=== PATIENT | male | born 1970 | race African-American/Black ===

== ENCOUNTER → 2019-01-28 | Day surgery (SDC) | payer BC ==
[~2019-01-28] MED LIST: CARTIA XT240 MG PO; CYMBALTA30 MG PO; FENTANYL CITRATE/PF 100MCG/2 ML INJ ONE; GABAPENTIN300 MG PO; IBUPROFEN400 MG PO; LOSARTAN-HCTZ1 EAC2 PO; METOCLOPRAMIDE HCL 10 MG/2ML VIAL ONE; MIDAZOLAM HCL 2 MG/2 ML VIAL ONE; MULTI-VITAMIN1 EACH PO; PROPOFOL IV EMULSION 10 MG/ML 20 ML VIAL ONE; TYLENOL WITH C1 EACH PO; ZANTAC150 MG PO
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
--- OUTSIDE RECORDS SUMMARY | 2019-01-28 11:18 | XMS REPORT ---
Author Author Stanislaw Edwards [facility] eClinicalWorks Address Unknown Phone Unavailable Care Team Providers Care Store Planner Name Role Phone Stanislaw Edwards Unavailable Allergies, Adverse Reactions, Alerts Substance Reaction Event Type N.K.D.A. Info Not Available Non Drug Allergy Problems Problem Type Condition Code Onset Dates Condition Status Assessment Spermatocele N43.40 Active Assessment Chest pain, unspecified type R07.9 Active Problem Erectile dysfunction, unspecified erectile dysfunction type N52.9 Active Problem Acute hemolytic anemia D59.9 Active Problem Smoker F17.200 Active Assessment Hypogonadism in male E29.1 Active Assessment Smoker F17.200 Active Problem Essential hypertension I10 Active Problem Hypogonadism in male E29.1 Active Medications Medication Code System Code Instructions Start Date End Date Status Dosage Ibuprofen ND 04018533228 400 MG Orally Three times a day Active 1 tablet with food or milk as needed Losartan Potassium-HCTZ ND 57674395771 100-25 MG Orally Once a day September 07, 2017 Active 1 tablet Cardizem LA ND 73839816231 240 MG Orally Once a day September 07, 2017 Active 1 tablet at the same time each day Multi For Him ND 44362317806 - Orally Active not defined Chantix Starting Month Leonides [facility] [address]-25 0.5 MG X 11 & 1 MG X 42 Orally as directed December 17, 2017 January 16, 2018 Active as directed Acetaminophen-Codeine #3 [facility] 12579080594 300-30 MG Oral Active (Schedule III Drug) TK 1 T PO EVERY 6 TO 8 HOURS PRF PAIN Gabapentin ND 95320037723 300 MG Orally Three times a day Active 1 capsule Methocarbamol ND 13364111549 500 mg Active 1.5 TABLETS THREE TIMES A DAY (TID) NEEDED (PRN) BY MOUTH 15 DAYS Chantix Continuing Month Leonides [facility] 68122858732 1 MG Orally Twice a day December 17, 2017 Mar 17, 2018 Active 1 tablet Vital Signs Date/Time: December 17, 2017 BMI 30.54 Index Weight 219 lbs Height 71 in Cardiac Monitoring Heart Rate 66 /min Blood Pressure Diastolic 76 mm Hg Blood Pressure Systolic 124 mm Hg Results No Known Results Summary Purpose eClinicalWorks Submission
--- OUTSIDE RECORDS SUMMARY | 2019-01-28 11:18 | XMS REPORT | Summary of Care ---
Author Author [facility] [employer] Organization [facility] Address Unknown Phone Unavailable Encounter JUANY Montalvo(ELISE) [id number] Date(s): 10/17/18 - 10/17/18 [facility] Discharge Disposition: Home or Self Care Attending Physician: Ibrahima Kohli MD Vital Signs No data available for [...]
--- OUTSIDE RECORDS SUMMARY | 2019-01-28 11:18 | XMS REPORT | Summary of Care ---
Author Author [facility] Organization [facility] Address Unknown Phone Unavailable Encounter HQ Encntr_alias(FIN) [id number] Date(s): 10/24/17 - 11/22/17 [facility] Discharge Disposition: Home or Self Care Attending Physician: Marcial West MD Vital Signs No data available for this section Problem List No data available for this section Allergies, Adverse Reactions, Alerts No data available for this section Medications No data available for this section Results No data available for this section Immunizations No data available for this section Procedures No data available for this section Social History No data available for this section Assessment and Plan No data available for this section
--- OUTSIDE RECORDS SUMMARY | 2019-01-28 11:18 | XMS REPORT ---
Author Author Stanislaw Edwards Organization [employer]ClinicalWorks Address Unknown Phone Unavailable Care Team Providers Care Global Engineering Manager Name Role Phone Stanislaw Edwards Unavailable Allergies, Adverse Reactions, Alerts Substance Reaction Event Type N.K.D.A. Info Not Available Non Drug Allergy Problems Problem Type Condition Code Onset Dates Condition Status Assessment Hyperglycemia R73.9 Active Assessment Essential hypertension I10 Active Assessment Pharyngitis, unspecified etiology J02.9 Active Assessment Status post hip surgery Z98.890 Active Assessment Encounter to discuss test results Z71.2 Active Problem LVH (left ventricular hypertrophy) I51.7 Active Problem Smoker F17.200 Active Problem Hyperglycemia R73.9 Active Problem Essential hypertension I10 Active Problem Hypogonadism in male E29.1 Active Problem Erectile dysfunction, unspecified erectile dysfunction type N52.9 Active Problem Acute hemolytic anemia D59.9 Active Medications Medication Code System Code Instructions Start Date End Date Status Dosage Ibuprofen ND 87398247784 400 MG Orally Three times a day Active 1 tablet with food or milk as needed Multi For Him ND 66407888591 - Orally Active not defined Zithromax Z-Leonides ND 24282117260 250 MG Orally Once a day Jul 25, 2018 Active 2 tablets on the first day, then 1 tablet daily for 4 days Gabapentin ND 25770905178 300 MG Orally Three times a day Active 1 capsule Matzim LA ND 04194371684 240 MG Active TAKE ONE (1) TABLET(S) BY MOUTH ONCE A DAY. Losartan Potassium-HCTZ ND 71238520937 100-25 MG Active TAKE ONE (1) TABLET(S) BY MOUTH ONCE A DAY. Vital Signs Date/Time: Jul 24, 2018 BMI 32.49 Index Weight 233 lbs Height 71 in Temperature 98.2 F Cardiac Monitoring Heart Rate 84 /min Blood Pressure Diastolic 84 mm Hg Blood Pressure Systolic 144 mm Hg Results Name Result Date Reference Range Unit Abnormality Flag CBC ----Lymphs 2.7 20180730 ----NEUTROPHILS MID- 0.6, GRA-3.5 20180730 ----MCHC 31.7 20180730 ----MCH 30.2 20180730 ----MCV 95.4 20180730 ----Neutrophils (Absolute) MID-8.6, GRA-51.4 20180730 ----Platelets 303 20180730 ----RDW 12.8 20180730 ----Lymphs (Absolute) 40.0 20180730 ----WBC 6.8 20180730 ----RBC 4.60 20180730 ----Hemoglobin 13.9 20180730 ----Hematocrit 43.9 20180730 Summary Purpose eClinicalWorks Submission
--- OUTSIDE RECORDS SUMMARY | 2019-01-28 11:18 | XMS REPORT ---
Author Author Lucy Simth [facility] eClinicalWorks Address Unknown Phone Unavailable Care Team Providers Care Fur Liner Name Role Phone Donald Church Lucy CP Unavailable Allergies, Adverse Reactions, Alerts Substance Reaction Event Type N.K.D.A. Info Not Available Non Drug Allergy Problems Problem Type Condition Code Onset Dates Condition Status Assessment Screening PSA (prostate specific antigen) Z12.5 Active Assessment Right upper quadrant pain R10.11 Active Assessment Musculoskeletal chest pain R07.89 Active Assessment Routine physicl lab exam Z00.00 Active Problem Smoker F17.200 Active Problem Erectile dysfunction, unspecified erectile dysfunction type N52.9 Active Problem LVH (left ventricular hypertrophy) I51.7 Active Problem Hypogonadism in male E29.1 Active Problem Acute hemolytic anemia D59.9 Active Problem Essential hypertension I10 Active Medications Medication Code System Code Instructions Start Date End Date Status Dosage Testosterone Cypionate [facility] 09637742215 200 MG/ML Intramuscular Q2 weeks Feb 14, 2018 Active 1 ml Gabapentin ND 53694431081 300 MG Orally Three times a day Active 1 capsule Cardizem LA ND 18541875863 240 MG Orally Once a day September 07, 2017 Active 1 tablet at the same time each day Ibuprofen ND 69841590752 400 MG Orally Three times a day Active 1 tablet with food or milk as needed Methocarbamol ND 03953854327 500 mg Active 1.5 TABLETS THREE TIMES A DAY (TID) NEEDED (PRN) BY MOUTH 15 DAYS Losartan Potassium-HCTZ ND 01355861737 100-25 MG Active TAKE ONE (1) TABLET(S) BY MOUTH ONCE A DAY. Acetaminophen-Codeine #3 [facility] 35895150006 300-30 MG Oral Active (Schedule III Drug) TK 1 T PO EVERY 6 TO 8 HOURS PRF PAIN Multi For Him ND 10131216340 - Orally Active not defined Vital Signs Date/Time: Jun 13, 2018 BMI 32.91 Index Weight 236 lbs Height 71 in Cardiac Monitoring Heart Rate 68 /min Blood Pressure Diastolic 70 mm Hg Blood Pressure Systolic 128 mm Hg Results Name Result Date Reference Range Unit Abnormality Flag Comp. Metabolic Panel (14) ----Calcium 9.7 55555576 8.7-10.2 mg/dL ----Carbon Dioxide, Total 27 55844281 20-29 mmol/L ----ALT (SGPT) 20 03543933 0-44 IU/L ----Creatinine 1.13 56307882 0.76-1.27 mg/dL ----AST (SGOT) 29 32914043 0-40 IU/L ----eGFR If NonAfricn Am 77 71396089 >59 mL/min/1.73 ----Alkaline Phosphatase 72 21336198 39-117 IU/L ----eGFR If Africn Am 89 62036030 >59 mL/min/1.73 ----Bilirubin, Total <0.2 57219087 0.0-1.2 mg/dL ----BUN/Creatinine Ratio 8 04442929 9-20 L ----A/G Ratio 1.5 15321498 1.2-2.2 ----Sodium 142 59541086 134-144 mmol/L ----Globulin, Total 3.1 00653215 1.5-4.5 g/dL ----Potassium 4.1 89883097 3.5-5.2 mmol/L ----Glucose 105 78182299 65-99 mg/dL H ----Chloride 99 15851848 96-106 mmol/L ----Albumin 4.7 16224245 3.5-5.5 g/dL ----BUN 9 77668819 6-24 mg/dL ----Protein, Total 7.8 19390089 6.0-8.5 g/dL TSH ----TSH 1.520 43358603 0.450-4.500 uIU/mL PSA Total+ Free ----Prostate Specific Ag, Serum 1.0 05773978 0.0-4.0 ng/mL ----PSA, Free 0.25 98954621 N/A ng/mL ----% Free PSA 25.0 98215258 % Urine Culture, Routine ----Result 1 No growth [id number] ----Urine Culture, Routine Final report [id number] CBC With Differential/Platelet ----MCH 30.8 15158252 26.6-33.0 pg ----Immature Grans (Abs) 0.0 18763104 0.0-0.1 x10E3/uL ----MCV 91 61556416 79-97 fL ----Immature Granulocytes 0 70146327 Not Estab. % ----Hematocrit 38.6 26305473 37.5-51.0 % ----Hemoglobin 13.1 62039189 13.0-17.7 g/dL ----Platelets 304 59913367 150-379 x10E3/uL ----RDW 14.6 63592510 12.3-15.4 % ----MCHC 33.9 31688554 31.5-35.7 g/dL ----Monocytes 11 83257981 Not Estab. % ----Eos 1 50482270 Not Estab. % ----Basos 0 23320484 Not Estab. % ----Neutrophils (Absolute) 3.1 26889426 1.4-7.0 x10E3/uL ----RBC 4.26 61773176 4.14-5.80 x10E6/uL ----WBC 6.7 72207804 3.4-10.8 x10E3/uL ----Neutrophils 46 31576110 Not Estab. % ----Lymphs 42 23571169 Not Estab. % ----Eos (Absolute) 0.1 61776687 0.0-0.4 x10E3/uL ----Baso (Absolute) 0.0 15088575 0.0-0.2 x10E3/uL ----Lymphs (Absolute) 2.9 84898938 0.7-3.1 x10E3/uL ----Monocytes(Absolute) 0.7 39269537 0.1-0.9 x10E3/uL Urinalysis, Routine ----Ketones Negative 46330664 Negative ----Glucose Negative 57172311 Negative ----Protein Negative 72368549 Negative/Trace ----WBC Esterase Negative 32329592 Negative ----Appearance Clear 24803803 Clear ----Urine-Color Yellow 27452330 Yellow ----pH 7.5 44949237 5.0-7.5 ----Specific [place] 1.008 65451078 1.005-1.030 ----WBC 0-5 33536386 0 - 5 /hpf ----RBC 0-2 58254574 0 - 2 /hpf ----Epithelial Cells (non renal) 0-10 94966435 0 - 10 /hpf ----Bacteria None seen 17274560 None seen/Few ----Bilirubin Negative 98352584 Negative ----Urobilinogen,Semi-Qn 0.2 68511850 0.2-1.0 mg/dL ----Nitrite, Urine Negative 51990014 Negative ----Microscopic Examination See below: [id number] ----Occult Blood Trace 13562737 Negative A Lipid Panel ----HDL Cholesterol 63 61289133 >39 mg/dL ----Triglycerides 152 35707858 0-149 mg/dL H ----LDL Cholesterol Calc 92 58200863 0-99 mg/dL ----VLDL Cholesterol Mike 30 51765673 5-40 mg/dL ----Cholesterol, Total 185 65066553 100-199 mg/dL Summary Purpose eClinicalWorks Submission
--- OUTSIDE RECORDS SUMMARY | 2019-01-28 11:18 | XMS REPORT ---
Author Author Jeniffer Heath [facility] eClinicalWorks Address Unknown Phone Unavailable Care Team Providers Care Senior Software Quality Engineer Name Role Phone Jeniffer Heath Unavailable Allergies, Adverse Reactions, Alerts Substance Reaction Event Type N.K.D.A. Info Not Available Non Drug Allergy Problems Problem Type Condition Code Onset Dates Condition Status Assessment LVH (left ventricular hypertrophy) I51.7 Active Assessment Hypogonadism in male E29.1 Active Assessment Smoker F17.200 Active Problem Smoker F17.200 Active Problem Erectile dysfunction, unspecified erectile dysfunction type N52.9 Active Problem LVH (left ventricular hypertrophy) I51.7 Active Problem Hypogonadism in male E29.1 Active Assessment Essential hypertension I10 Active Problem Acute hemolytic anemia D59.9 Active Problem Essential hypertension I10 Active Medications Medication Code System Code Instructions Start Date End Date Status Dosage Acetaminophen-Codeine #3 [facility] 48675105328 300-30 MG Oral Active (Schedule III Drug) TK 1 T PO EVERY 6 TO 8 HOURS PRF PAIN Chantix Continuing Month Leonides ND 10377213206 1 MG Orally Twice a day December 17, 2017 Mar 17, 2018 Active 1 tablet Methocarbamol ND 18687609194 500 mg Active 1.5 TABLETS THREE TIMES A DAY (TID) NEEDED (PRN) BY MOUTH 15 DAYS Gabapentin ND 23144493916 300 MG Orally Three times a day Active 1 capsule Multi For Him ND 58543585375 - Orally Active not defined Testosterone Cypionate ND 84159925975 200 MG/ML Intramuscular Q2 weeks Feb 14, 2018 Active 1 ml Losartan Potassium-HCTZ ND 46269863260 100-25 MG Orally Once a day September 07, 2017 Active 1 tablet Cardizem LA ND 68609125414 240 MG Orally Once a day September 07, 2017 Active 1 tablet at the same time each day Ibuprofen ND 47566373064 400 MG Orally Three times a day Active 1 tablet with food or milk as needed Vital Signs Date/Time: Feb 14, 2018 BMI 31.38 Index Weight 225 lbs Height 71 in Cardiac Monitoring Heart Rate 70 /min Blood Pressure Diastolic 80 mm Hg Blood Pressure Systolic 145 mm Hg Results No Known Results Summary Purpose eClinicalWorks Submission
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
--- OUTSIDE RECORDS SUMMARY | 2019-01-28 11:18 | XMS REPORT | Summary of Care ---
Author Author [facility] [employer] Organization [facility] Address Unknown Phone Unavailable Encounter JUANY Montalvo(ELISE) [id number] Date(s): 12/25/18 - 01/23/19 [facility] Discharge Disposition: Home or Self Care Attending [...]
--- OUTSIDE RECORDS SUMMARY | 2019-01-28 11:18 | XMS REPORT ---
Author Author Stanislaw Edwards [facility] eClinicalWorks Address Unknown Phone Unavailable Care Team Providers Care Industrial Relations Representative Name Role Phone Stanislaw Edwards CP Unavailable Allergies, Adverse Reactions, Alerts Substance Reaction Event Type N.K.D.A. Info Not Available Non Drug Allergy Problems Problem Type Condition Code Onset Dates Condition Status Problem Erectile dysfunction, unspecified erectile dysfunction type N52.9 Active Problem Acute hemolytic anemia D59.9 Active Problem Smoker F17.200 Active Assessment Chest pain, unspecified type R07.9 Active Problem Essential hypertension I10 Active Problem Hypogonadism in male E29.1 Active Medications Medication Code System Code Instructions Start Date End Date Status Dosage Losartan Potassium-HCTZ [facility] 55213484443 100-25 MG Orally Once a day September 07, 2017 Active 1 tablet Chantix Starting Month Leonides [facility] [address]-39 0.5 MG X 11 & 1 MG X 42 Orally as directed December 17, 2017 January 16, 2018 Active as directed Methocarbamol ND 20738474359 500 mg Active 1.5 TABLETS THREE TIMES A DAY (TID) NEEDED (PRN) BY MOUTH 15 DAYS Acetaminophen-Codeine #3 [facility] 58356685688 300-30 MG Oral Active (Schedule III Drug) TK 1 T PO EVERY 6 TO 8 HOURS PRF PAIN Cardizem LA ND 86092038005 240 MG Orally Once a day September 07, 2017 Active 1 tablet at the same time each day Multi For Him ND 05134358676 - Orally Active not defined Ibuprofen ND 83533834227 400 MG Orally Three times a day Active 1 tablet with food or milk as needed Chantix Continuing Month Leonides [facility] 11326914629 1 MG Orally Twice a day December 17, 2017 Mar 17, 2018 Active 1 tablet Gabapentin ND 11328494652 300 MG Orally Three times a day Active 1 capsule Vital Signs Date/Time: December 31, 2017 BMI 30.96 Index Weight 222 lbs Height 71 in Cardiac Monitoring Heart Rate 71 /min Blood Pressure Diastolic 78 mm Hg Blood Pressure Systolic 142 mm Hg Results No Known Results Summary Purpose eClinicalWorks Submission
--- OUTSIDE RECORDS SUMMARY | 2019-01-28 11:18 | XMS REPORT ---
Author Author Stanislaw Edwards Organization [employer] Address Unknown Phone Unavailable Care Team Providers Care Ultimate Hoops Trainer Name Role Phone Stanislaw Edwards CP Unavailable Allergies, Adverse Reactions, Alerts Substance Reaction Event Type N.K.D.A. Info Not Available Non Drug Allergy Problems Problem Type Condition Code Onset Dates Condition Status Problem Hypogonadism in male E29.1 Active Problem Erectile dysfunction, unspecified erectile dysfunction type N52.9 Active Problem Essential hypertension I10 Active Assessment Hypogonadism in male E29.1 Active Problem Acute hemolytic anemia D59.9 Active Assessment Essential hypertension I10 Active Medications Medication Code System Code Instructions Start Date End Date Status Dosage Docusate Sodium ND 50207399194 100 MG Orally Once a day Active 1 capsule as needed Multi For Him ND 39343139359 - Orally Active not defined Cardizem LA ND 52975886081 240 MG Orally Once a day September 07, 2017 Active 1 tablet at the same time each day Methocarbamol ND 03773471739 500 MG Orally every 4 hrs Active 1.5 tablets Ibuprofen ND 76837737366 400 MG Orally Three times a day Active 1 tablet with food or milk as needed Gabapentin ND 03695960127 300 MG Orally Three times a day Active 1 capsule Folic Acid ND 18249831342 1 MG Orally Once a day Active 1 tablet Acetaminophen-Codeine #3 ND 37849644048 300-30 MG Oral Active (Schedule III Drug) TK 1 T PO EVERY 6 TO 8 HOURS PRF PAIN Thiamine ND 88920850433 50 MG Orally Once a day Active 1 capsule Losartan Potassium-HCTZ ND 69144144346 100-25 MG Orally Once a day September 07, 2017 Active 1 tablet Vital Signs Date/Time: October 10, 2017 BMI 29.29 Index Weight 210 lbs Height 71 in Cardiac Monitoring Heart Rate 75 /min Blood Pressure Diastolic 84 mm Hg Blood Pressure Systolic 144 mm Hg Results No Known Results Summary Purpose eClinicalWorks Submission
--- OUTSIDE RECORDS SUMMARY | 2019-01-28 11:18 | XMS REPORT ---
Author Author Jeniffer Heath [facility] eClinicalWorks Address Unknown Phone Unavailable Care Team Providers Care Playground Supervisor Name Role Phone Jeniffer Heath CP Unavailable Allergies, Adverse Reactions, Alerts Substance Reaction Event Type N.K.D.A. Info Not Available Non Drug Allergy Problems Problem Type Condition Code Onset Dates Condition Status Assessment Erectile dysfunction, unspecified erectile dysfunction type N52.9 Active Assessment Right leg pain M79.604 Active Problem Hypogonadism in male E29.1 Active Problem Erectile dysfunction, unspecified erectile dysfunction type N52.9 Active Problem Essential hypertension I10 Active Assessment Hypogonadism in male E29.1 Active Assessment Acute hemolytic anemia D59.9 Active Problem Acute hemolytic anemia D59.9 Active Assessment Essential hypertension I10 Active Medications Medication Code System Code Instructions Start Date End Date Status Dosage Folic Acid [facility] 18335938857 1 MG Orally Once a day Active [address] [facility] 99659879523 325 MG Orally every 6 hrs Active 2 tablets as needed Multi For Him ND 30403842824 - Orally Active not defined Gabapentin ND 20584975912 300 MG Orally Three times a day Active 1 capsule Docusate Sodium ND 85685688360 100 MG Orally Once a day Active 1 capsule as needed Acetaminophen-Codeine #[address] [facility] 85639968603 300-30 MG Oral Active (Schedule III Drug) TK 1 T PO EVERY 6 TO 8 HOURS PRF PAIN Apixaban [facility] [address]-58 2.5 MG Orally twice a day (bid) Active 1 tablet Enalapril Maleate ND 64261558965 2.5 MG Orally Once a day Active 1 tablet Losartan Potassium-HCTZ ND 86149817936 100-25 MG Orally Once a day September 07, 2017 Active [address] [facility] 09672359330 50 MG Orally Once a day Active 1 capsule Cardizem LA ND 30718300482 120 MG Orally Once a day September 07, 2017 Active 1 tablet at the same time each day Cialis [facility] 87289707042 10 mg Orally Once a day PRN September 07, 2017 October 07, 2017 Active [address] [facility] 87835934233 500 mg by mouth three times a day (tid) as needed (prn) September 22, 2017 Active 1.[address] [facility] 75430078092 400 MG Orally Three times a day Active 1 tablet with food or milk as needed Vital Signs Date/Time: September 07, 2017 BMI 29.29 Index Weight 210 lbs Height 71 in Cardiac Monitoring Heart Rate 103 /min Blood Pressure Diastolic 102 mm Hg Blood Pressure Systolic 150 mm Hg Results No Known Results Summary Purpose eClinicalWorks Submission
--- OUTSIDE RECORDS SUMMARY | 2019-01-28 11:18 | XMS REPORT | Summary of Care ---
Author Author [facility] Organization [facility] Address Unknown Phone Unavailable Encounter HQ Katia(ELISE) [id number] Date(s): 04/11/18 - 04/11/18 [facility] [address] [place] [address]- Encounter Diagnosis Displaced fracture of posterior column [ilioischial] of right acetabulum, initia l encounter for closed fracture (Final) - 04/16/18 Discharge Disposition: Home or Self Care Attending [...] No data available for this section Results CHEM PANEL Most recent to 1 oldest [Reference Range]: eGFR 69 mL/min/1.73m2 1 *NA* (04/11/18 9:19 PM) POC Creatinine 1.4 mg/dL [0.5-1.4 mg/dL] (04/11/18 9:19 PM) 1Result Comment: The eGFR is calculated using the [...] from the National Kidney Disease Education Program ( NKDEP) which additionally recommends that when the eGFR is used in patients with extremes of body mass index for purposes of drug dosing, the eGFR should be mul tiplied by the estimated BMI. Immunizations No data available for this section [...]
--- OUTSIDE RECORDS SUMMARY | 2019-01-28 11:18 | XMS REPORT ---
Author Author Stanislaw Edwards Organization [employer]ClinicalWorks Address Unknown Phone Unavailable Care Team Providers Care Photoengraving Sketch Maker Name Role Phone Stanislaw Edwards CP Unavailable Allergies No Known Allergies Problems Problem Type Condition Code Onset Dates Condition Status Problem Smoker F17.200 Active Problem Erectile dysfunction, unspecified erectile dysfunction type N52.9 Active Problem LVH (left ventricular hypertrophy) I51.7 Active Problem Hypogonadism in male E29.1 Active Assessment Essential hypertension I10 Active Problem Acute hemolytic anemia D59.9 Active Problem Essential hypertension I10 Active Medications Medication Code System Code Instructions Start Date End Date Status Dosage Marisol WAITE [facility] 86770390537 240 MG Orally Once a day September 07, 2017 Active 1 tablet at the same time each day Results No Known Results Summary Purpose eClinicalWorks Submission
--- OUTSIDE RECORDS SUMMARY | 2019-01-28 11:18 | XMS REPORT ---
Author Author Stanislaw Edwards Organization [employer] Address Unknown Phone Unavailable Care Team Providers Care Mobile Ui Designer Name Role Phone Stanislaw Edwards CP Unavailable Allergies No Known Allergies Problems Problem Type Condition Code Onset Dates Condition Status Problem Hypogonadism in male E29.1 Active Problem Erectile dysfunction, unspecified erectile dysfunction type N52.9 Active Problem Essential hypertension I10 Active Problem Acute hemolytic anemia D59.9 Active Medications Medication Code System Code Instructions Start Date End Date Status Dosage Methocarbamol [facility] 39817855896 500 mg by mouth three times a day (tid) as needed (prn) September 10, 2017 Active 1 tablet Results No Known Results Summary Purpose eClinicalWorks Submission
--- OUTSIDE RECORDS SUMMARY | 2019-01-28 11:18 | XMS REPORT ---
Author Author Stanislaw Edwards [facility] eClinical[employer] Address Unknown Phone Unavailable Care Team Providers Care Network Technician Name Role Phone Stanislaw Edwards Unavailable Allergies, Adverse Reactions, Alerts Substance Reaction Event Type N.K.D.A. Info Not Available Non Drug Allergy Problems Problem Type Condition Code Onset Dates Condition Status Assessment Physical exam Z00.00 Active Problem Hypogonadism in male E29.1 Active Problem Hyperglycemia R73.9 Active Problem LVH (left ventricular hypertrophy) I51.7 Active Problem Anxiety F41.9 Active Problem Acute hemolytic anemia D59.9 Active Problem Essential hypertension I10 Active Problem Smoker F17.200 Active Problem Erectile dysfunction, unspecified erectile dysfunction type N52.9 Active Assessment Foot drop, right M21.371 Active Assessment Anxiety F41.9 Active Assessment Hyperglycemia R73.9 Active Assessment Radiculopathy of leg M54.10 Active Assessment Essential hypertension I10 Active Medications Medication Code System Code Instructions Start Date End Date Status Dosage Cardizem LA ND 21340790033 240 MG Orally Once a day October 14, 2018 Active 1 tablet at the same time each day Ibuprofen ND 45532916926 400 MG Orally Three times a day Active 1 tablet with food or milk as needed Zithromax Z-Leonides ND 20967723455 250 MG Orally Once a day Jul 25, 2018 Active 2 tablets on the first day, then 1 tablet daily for 4 days Cymbalta ND 32200317472 60 MG Orally Once a day October 14, 2018 Active 1 capsule Gabapentin ND 65073315225 300 MG Orally Three times a day Active 1 capsule Multi For Him ND 52391772613 - Orally Active not defined Matzim LA ND 45345953669 240 MG Inactive TAKE ONE -1 TABLET(S) BY MOUTH ONCE A DAY. Losartan Potassium-HCTZ [facility] 55293206822 100-25 MG Active TAKE ONE - 1 TABLET(S) BY MOUTH ONCE A DAY. Vital Signs Date/Time: October 14, 2018 BMI 31.38 Index Weight 225 lbs Height 71 in Cardiac Monitoring Heart Rate 64 /min Blood Pressure Diastolic 68 mm Hg Blood Pressure Systolic 112 mm Hg Results Name Result Date Reference Range Unit Abnormality Flag Chest 2 views- Xray Summary Purpose eClinicalWorks Submission
--- OUTSIDE RECORDS SUMMARY | 2019-01-28 11:18 | XMS REPORT ---
Author Author Stanislaw Edwards Organization [employer] Address Unknown Phone Unavailable Care Team Providers Care Fish Net Stringer Name Role Phone Stanislaw Edwards CP Unavailable Allergies No Known Allergies Problems Problem Type Condition Code Onset Dates Condition Status Assessment Essential hypertension I10 Active Problem Hypogonadism in male E29.1 Active Problem Hyperglycemia R73.9 Active Problem LVH (left ventricular hypertrophy) I51.7 Active Problem Anxiety F41.9 Active Problem Acute hemolytic anemia D59.9 Active Problem Essential hypertension I10 Active Problem Smoker F17.200 Active Problem Erectile dysfunction, unspecified erectile dysfunction type N52.9 Active Assessment Erectile dysfunction, unspecified erectile dysfunction type N52.9 Active Assessment Acute hemolytic anemia D59.9 Active Assessment Lower abdominal pain R10.30 Active Assessment Hyperglycemia R73.9 Active Assessment Chest pain, unspecified type R07.9 Active Assessment Hypogonadism in male E29.1 Active Medications Medication Code System Code Instructions Start Date End Date Status Dosage Ibuprofen ND 73518435161 400 MG Orally Three times a day Active 1 tablet with food or milk as needed Losartan Potassium-HCTZ [facility] 29990764369 100-25 MG Active TAKE ONE - 1 TABLET(S) BY MOUTH ONCE A DAY. Multi For Him [facility] 29212003749 - Orally Active not defined Gabapentin ND 36866138976 300 MG Orally Three times a day Active 1 capsule Cymbalta [facility] 69502452166 60 MG Orally Once a day October 14, 2018 Active 1 capsule Cardizem LA ND 96838203678 240 MG Orally Once a day October 14, 2018 Active 1 tablet at the same time each day Vital Signs Date/Time: January 07, 2019 BMI 31.10 Index Weight 223 lbs Height 71 in Cardiac Monitoring Heart Rate 78 /min Blood Pressure Diastolic 86 mm Hg Blood Pressure Systolic 140 mm Hg Results Name Result Date Reference Range Unit Abnormality Flag Chest 2 views- Xray Summary Purpose eClinicalWorks Submission
--- OUTSIDE RECORDS SUMMARY | 2019-01-28 11:18 | XMS REPORT ---
Author Author Stanislaw Edwards Organization [employer] Address Unknown Phone Unavailable Care Team Providers Care Wet Process Assistant Head Miller Name Role Phone Stanislaw Edwards CP Unavailable [...] Start Date End Date Status Dosage Ibuprofen [facility] 84649301908 400 MG Orally Three times a day Active 1 tablet with food or milk as needed Chantix Starting Month [facility] [address]-02 0.5 MG X 11 & 1 MG X 42 Orally as directed December 17, 2017 January 16, 2018 Active as directed Losartan Potassium-HCTZ ND 29325903942 100-25 MG Orally Once a day September 07, 2017 Active 1 tablet Gabapentin [facility] 16075405581 300 MG Orally Three times a day Active 1 capsule Acetaminophen-Codeine #[address] [facility] 03632446595 300-30 MG Oral Active (Schedule III Drug) TK 1 T PO EVERY 6 TO 8 HOURS PRF PAIN Methocarbamol ND 37521359748 500 mg Active 1.5 TABLETS THREE TIMES A DAY (TID) NEEDED (PRN) BY MOUTH 15 DAYS Chantix Continuing Month [facility] 06423939280 1 MG Orally Twice a day December 17, 2017 Mar 17, 2018 Active 1 tablet Cardizem LA ND 77013183226 240 MG Orally Once a day September 07, 2017 Active 1 tablet at the same time each day Multi For Him [facility] 32581089477 - Orally Active not defined Results No Known Results Summary Purpose eClinicalWorks Submission
--- OUTSIDE RECORDS SUMMARY | 2019-01-28 11:18 | XMS REPORT | Summary of Care ---
Author Author [facility] Organization [facility] Address Unknown Phone Unavailable Encounter HQ Katia(FIN) [id number] Date(s): 08/16/17 - 09/14/17 [facility] Encounter Diagnosis Displaced fracture of posterior column [ilioischial] of right acetabulum, initia l encounter for closed fracture (Final) - 09/19/17 Pain in right knee (Final) - Muscle weakness (generalized) (Final) - Discharge Disposition: Home or Self [...]
--- OUTSIDE RECORDS SUMMARY | 2019-01-28 11:18 | XMS REPORT | Summary of Care ---
Author Author [facility] Organization [facility] Address Unknown Phone Unavailable Encounter HQ Encntr_alias(FIN) [id number] Date(s): 11/26/17 - 12/25/17 [facility] Discharge Disposition: Home or Self Care Attending [...]
--- OUTSIDE RECORDS SUMMARY | 2019-01-28 11:18 | XMS REPORT ---
Author Author Lucy Smith Organization [employer] Address Unknown Phone Unavailable Care Team Providers Care Research Project Manager Name Role Phone Lucy Smith CP Unavailable Allergies No Known Allergies Problems Problem Type Condition Code Onset Dates Condition Status Assessment Essential hypertension I10 Active Problem LVH (left ventricular hypertrophy) I51.7 Active Problem Smoker F17.200 Active Problem Hyperglycemia R73.9 Active Problem Essential hypertension I10 Active Problem Hypogonadism in male E29.1 Active Problem Erectile dysfunction, unspecified erectile dysfunction type N52.9 Active Problem Acute hemolytic anemia D59.9 Active Medications Medication Code System Code Instructions Start Date End Date Status Dosage Losartan Potassium-HCTZ [facility] 91338840499 100-25 MG Active TAKE ONE - 1 TABLET(S) BY MOUTH ONCE A DAY. Matzim LA [facility] 48081469138 240 MG Active TAKE ONE -1 TABLET(S) BY MOUTH ONCE A DAY. Results No Known Results Summary Purpose eClinicalWorks Submission
--- OUTSIDE RECORDS SUMMARY | 2019-01-28 11:18 | XMS REPORT | Summary of Care ---
Author Author [facility] Organization [facility] Address Unknown Phone Unavailable Care Team Providers Care Photo Producer Name Role Phone Stanislaw Edwards Sam PCP Encounter HQ Encntr_vamsi(FIN) [id number] Date(s): 10/22/18 - 11/20/18 [facility] Discharge Disposition: Home or Self [...]
--- OUTSIDE RECORDS SUMMARY | 2019-01-28 11:18 | XMS REPORT | Summary of Care ---
Author Author [facility] Organization [facility] Address Unknown Phone Unavailable Encounter HQ Encntr_alias(FIN) [id number] Date(s): 08/16/17 - 09/14/17 [facility] Encounter Diagnosis Displaced fracture of posterior column [...]
--- OUTSIDE RECORDS SUMMARY | 2019-01-28 11:18 | XMS REPORT ---
Author Author Stanislaw Edwards Organization [employer] Address Unknown Phone Unavailable Care Team Providers Care Telecommunication Equipment Repairer Name Role Phone Stanislaw Edwards CP Unavailable Allergies No Known Allergies Problems Problem Type Condition Code Onset Dates Condition Status Problem Erectile dysfunction, unspecified erectile dysfunction type N52.9 Active Problem Acute hemolytic anemia D59.9 Active Problem Smoker F17.200 Active Assessment Spermatocele N43.40 Active Problem Essential hypertension I10 Active Problem Hypogonadism in male E29.1 Active Medications Medication Code System Code Instructions Start Date End Date Status Dosage Ibuprofen [facility] 01516776414 400 MG Orally Three times a day Active 1 tablet with food or milk as needed Chantix Continuing Month Leonides [facility] 75555992821 1 MG Orally Twice a day December 17, 2017 Mar 17, 2018 Active 1 tablet Methocarbamol [facility] 90068948701 500 mg Active 1.5 TABLETS THREE TIMES A DAY (TID) NEEDED (PRN) BY MOUTH 15 DAYS Multi For Him [facility] 73525184322 - Orally Active not defined Gabapentin [facility] 04131921948 300 MG Orally Three times a day Active 1 capsule Cardizem LA [facility] 72609010881 240 MG Orally Once a day September 07, 2017 Active 1 tablet at the same time each day Losartan Potassium-HCTZ [facility] 11434924209 100-25 MG Orally Once a day September 07, 2017 Active 1 tablet Chantix Starting Month Leonides [facility] [address]-63 0.5 MG X 11 & 1 MG X 42 Orally as directed December 17, 2017 January 16, 2018 Active as directed Acetaminophen-Codeine #3 [facility] 17039193360 300-30 MG Oral Active (Schedule III Drug) TK 1 T PO EVERY 6 TO 8 HOURS PRF PAIN Results No Known Results Summary Purpose eClinicalWorks Submission
--- OUTSIDE RECORDS SUMMARY | 2019-01-28 11:18 | XMS REPORT ---
Author Author Jeniffer Heath [facility] eClinicalWorks Address Unknown Phone Unavailable Care Team Providers Care Scholarship Counselor Name Role Phone Jeniffer Heath CP Unavailable Allergies No Known Allergies Problems Problem Type Condition Code Onset Dates Condition Status Problem Smoker F17.200 Active Problem Erectile dysfunction, unspecified erectile dysfunction type N52.9 Active Problem LVH (left ventricular hypertrophy) I51.7 Active Problem Hypogonadism in male E29.1 Active Problem Acute hemolytic anemia D59.9 Active Problem Essential hypertension I10 Active Medications No Known Medications Results No Known Results Summary Purpose eClinicalWorks Submission
--- OUTSIDE RECORDS SUMMARY | 2019-01-28 11:18 | XMS REPORT ---
Author Author Stanislaw Edwards [facility] eClinicalWorks Address Unknown Phone Unavailable Care Team Providers Care Associate Dean Name Role Phone Stanislaw Edwards CP Unavailable Allergies, Adverse Reactions, Alerts Substance Reaction Event Type N.K.D.A. Info Not Available Non Drug Allergy Problems Problem Type Condition Code Onset Dates Condition Status Assessment Hypogonadism in male E29.1 Active Assessment Essential hypertension I10 Active Assessment Erectile dysfunction, unspecified erectile dysfunction type N52.9 Active Assessment Acute hemolytic anemia D59.9 Active Problem Hypogonadism in male E29.1 Active Problem Erectile dysfunction, unspecified erectile dysfunction type N52.9 Active Problem Essential hypertension I10 Active Assessment Status post hip surgery Z98.890 Active Assessment Closed fracture of right hip, initial encounter S72.001A Active Problem Acute hemolytic anemia D59.9 Active Assessment Hospital discharge follow-up Z09 Active Medications Medication Code System Code Instructions Start Date End Date Status Dosage Methocarbamol ND 13430509625 500 MG Orally every 4 hrs Active 1.5 tablets Docusate Sodium ND 03463025998 100 MG Orally Once a day Active 1 capsule as needed Acetaminophen-Codeine #3 ND 00359101398 300-30 MG Orally every 6 hrs Active 1 tablet as needed Acetaminophen ND 31437370937 325 MG Orally every 6 hrs Active 2 tablets as needed Enalapril Maleate ND 95642979195 2.5 MG Orally Once a day Active 1 tablet Ibuprofen ND 06592784284 400 MG Orally Three times a day Active 1 tablet with food or milk as needed Thiamine ND 85055833807 50 MG Orally Once a day Active 1 capsule Multi For Him ND 17692047159 - Orally Active not defined Apixaban [facility] [address]-44 2.5 MG Orally twice a day (bid) Active 1 tablet Gabapentin ND 12856751582 300 MG Orally Three times a day Active 1 capsule Folic Acid ND 01946098096 1 MG Orally Once a day Active 1 tablet Vital Signs Date/Time: Aug 06, 2017 Blood Pressure Systolic 124 mm Hg Weight unable lbs Height 71 in Cardiac Monitoring Heart Rate 106 /min Blood Pressure Diastolic 84 mm Hg Results No Known Results Summary Purpose eClinicalWorks Submission
--- OUTSIDE RECORDS SUMMARY | 2019-01-28 11:19 | XMS REPORT | Summary of Care ---
Author Author PATEL Mckeon, JEFFREY Organization Unknown Address [facility] Phone Unavailable Care Team Providers Care Erector Operator Name Role Phone JEFFREY SWEENEY M.D. Unavailable Unavailable VINCENT DORSEY, RIKI Haro Unavailable Unavailable JENNIFER BUENO Unavailable Unavailable PATEL OLSON, JEFFREY HERNANDEZ Unavailable Unavailable Unavailable Unavailable Functional Status Name Dates Details Functional status health issues are not documented Status: Name Dates Details Cognitive status health issues are not documented Status: Problems Name Dates Details Hip pain (719.45, M25.559) Status: Active Closed displaced fracture of posterior column of right acetabulum, initial encounter (808.0, S32.441A) Status: Active Injury of right sciatic nerve, initial encounter (956.0, S74.01XA) Status: Active Right foot drop (736.79, M21.371) Status: Active Medications Name Dates Details Vitamin D (Ergocalciferol) 40602 UNIT Oral Capsule TAKE 1 CAPSULE WEEKLY. Quantity: 15 PATEL M.D., JEFFREY * Start : 09-Aug-2017 Active Vitamin B12 1000 MCG Oral Tablet Extended Release TAKE 1 TABLET DAILY DIRECTED. * Quantity: 30 Refills: 0 PATEL M.D., JEFFREY * Start : 09-Aug-2017 Active Acetaminophen-Codeine #3 300-30 MG Oral Tablet TAKE 1 TABLET EVERY 4 TO 6 HOURS NEEDED FOR PAIN. * Quantity: 60 Refills: 0 PATEL M.D., JEFFREY * Start : 06-Sep-2017 Active Gabapentin 300 MG Oral Capsule TAKE 1 CAPSULE 3 TIMES DAILY. * Quantity: 90 Refills: 2 PATEL M.D., JEFFREY * Start : 06-Sep-2017 Active Vitamin D (Ergocalciferol) 69987 UNIT Oral Capsule TAKE 1 CAPSULE WEEKLY. * Quantity: 15 Refills: 0 PATEL M.D., JEFFREY * Start : 06-Sep-2017 Active Gabapentin 300 MG Oral Capsule TAKE 1 CAPSULE 3 TIMES DAILY. * Quantity: 90 Refills: 2 PATEL M.D., JEFFREY * Start : 16-Oct-2017 Active Acetaminophen-Codeine #3 300-30 MG Oral Tablet TAKE 1 TABLET EVERY 4 TO 6 HOURS NEEDED FOR PAIN. * Quantity: 60 Refills: 0 PATEL M.D., JEFFREY * Start : 16-Oct-2017 Active Methocarbamol 750 MG Oral Tablet TAKE 1 TABLET 3 TIMES DAILY. * Quantity: 60 Refills: 0 PATEL M.D., JEFFREY * Start : 16-Oct-2017 Active Acetaminophen-Codeine #3 300-30 MG Oral Tablet TAKE 1 TABLET EVERY 4 TO 6 HOURS NEEDED FOR PAIN. * Quantity: 60 Refills: 0 PATEL M.D., JEFFREY * Start : 20-Nov-2017 Active Methocarbamol 750 MG Oral Tablet TAKE 1 TABLET 3 TIMES DAILY. * Quantity: 60 Refills: 0 PATEL M.D., JEFFREY * Start : 20-Nov-2017 Active Vitamin D (Ergocalciferol) 12197 UNIT Oral Capsule TAKE 1 CAPSULE WEEKLY. * Quantity: 15 Refills: 2 PATEL M.D., JEFFREY * Start : 20-Nov-2017 Active Acetaminophen-Codeine #3 300-30 MG Oral Tablet TAKE 1 TABLET EVERY 4 TO 6 HOURS NEEDED FOR PAIN. * Quantity: 60 Refills: 0 PATEL M.D., JEFFREY * Start : 18-Dec-2017 Active Cyclobenzaprine HCl - 10 MG Oral Tablet TAKE 1 TABLET 3 TIMES DAILY NEEDED. * Quantity: 42 Refills: 0 PATEL M.D., JEFFREY * Start : 18-Dec-2017 Active Gabapentin 300 MG Oral Capsule TAKE 1 CAPSULE 3 TIMES DAILY. * Quantity: 90 Refills: 2 PATEL M.D., JEFFREY * Start : 18-Dec-2017 Active Acetaminophen-Codeine #3 300-30 MG Oral Tablet TAKE 1 TABLET EVERY 4 TO 6 HOURS NEEDED FOR PAIN. * Quantity: 60 Refills: 0 PATEL M.D., JEFFREY * Start : 15-Jan-2018 Active Cyclobenzaprine HCl - 10 MG Oral Tablet TAKE 1 TABLET 3 TIMES DAILY NEEDED. * Quantity: 20 Refills: 0 PATEL M.D., JEFFREY * Start : 15-Jan-2018 Active Gabapentin 300 MG Oral Capsule TAKE 1 CAPSULE 3 TIMES DAILY. * Quantity: 60 Refills: 2 PATEL M.D., JEFFREY * Start : 15-Jan-2018 Active Cyclobenzaprine HCl - 10 MG Oral Tablet TAKE 1 TABLET 3 TIMES DAILY NEEDED. * Quantity: 30 Refills: 2 PATEL M.D., JEFFREY * Start : 13-Feb-2018 Active Pennsaid 2 % Transdermal Solution Apply two pumps (40mg) topically to each affected area BID * Quantity: 1 Refills: 3 PATEL M.D., JEFFREY * Start : 12-Apr-2018 Active 112 GM Pump Btl Celecoxib 200 MG Oral Capsule TAKE 1 CAPSULE DAILY NEEDED. * Quantity: 30 Refills: 0 PATEL M.D., JEFFREY * Start : 12-Apr-2018 Active Gabapentin 300 MG Oral Capsule TAKE 1 CAPSULE 3 TIMES DAILY. * Quantity: 90 Refills: 0 PATEL M.D., JEFFREY * Start : 14-Jan-2019 Active Allergies and Adverse Reactions Name Dates Details No Known Drug Allergies (Allergy) Status: Active Procedures Procedure Dates Details Procedures not documented Immunization Name Dates Details Immunizations not documented Social History Name Dates Details Unknown if ever smoked Vital Signs Date Test Result Details No Known Vitals to report Results Date Description Value Details Results not documented Plan of Care Name Dates Details Planned Observations Planned Goals not documented Planned Encounters Appointment; MARIANNE KAUR M.D. On: 29-Jan-2019 9:30 Appointment; JEFFREY SWEENEY M.D. On: 15-Jul-2019 13:15 Interventions Provided Medication Changes* Gabapentin 300 MG Oral Capsule - Start Plan* Patient Education/Instructions: * Patient Education Provided * Reassurance * Patient/Parent to call or return with any abnormal changes * NSAIDS and ICE application for continued pain and swelling. * Orders: * Physical Therapy * Medications: * - Naprosyn 500mg. Take 1 every 12 hours as needed for pain. Naprosyn (naproxen) is an anti-inflammatory, pain medication. Take with food and only as prescribed by a physician. * - Voltaren Gel (diclofenac topical gel) is a topical, nonsteroidal anti-inflammatory medication. Apply Voltaren gel four times daily to the affected area as needed for pain. Use the dosing card for application. DO NOT exceed 32g per day. Do not take oral NSAIDs while using this medication. * Follow Up: * Return to the clinic in 6 months or as needed. * Cleared to work without restrictions. Instructions Name Dates Details Instructions not documented Encounters Appointment; JEFFREY SWEENEY M.D. Encounter Diagnosis: Problem not documented On: 09-Aug-2017 14:00 Appointment; JEFFREY SWEENEY M.D. Encounter Diagnosis: Problem not documented On: 06-Sep-2017 14:15 Appointment; JEFFREY SWEENEY M.D. Encounter Diagnosis: Problem not documented On: 11-Oct-2017 10:15 Appointment; JEFFREY SWEENEY M.D. Encounter Diagnosis: Problem not documented On: 16-Oct-2017 11:00 Appointment; JEFFREY SWEENEY M.D. Encounter Diagnosis: Problem not documented On: 20-Nov-2017 9:30 Appointment; JEFFREY SWEENEY M.D. Encounter Diagnosis: Problem not documented On: 18-Dec-2017 9:45 Appointment; JEFFREY SWEENEY M.D. Encounter Diagnosis: Problem not documented On: 15-Jan-2018 9:30 Appointment; JEFFREY SWEENEY M.D. Encounter Diagnosis: Problem not documented On: 05-Mar-2018 14:45 Appointment; JEFFREY SWEENEY M.D. Encounter Diagnosis: Problem not documented On: 19-Mar-2018 14:15 Appointment; HILARIA ALONZO M.D. Encounter Diagnosis: Problem not documented On: 18-Apr-2018 10:00 Appointment; MARIANNE KAUR M.D. Encounter Diagnosis: Problem not documented On: 19-Jul-2018 13:00 Appointment; MARIANNE KAUR M.D. Encounter Diagnosis: Problem not documented On: 26-Jul-2018 7:30 Appointment; MARIANNE KAUR M.D. Encounter Diagnosis: Problem not documented On: 07-Aug-2018 9:00 Appointment; MARIANNE KAUR M.D. Encounter Diagnosis: Problem not documented On: 06-Sep-2018 13:15 Appointment; JENNIFER GARCIA P.A. Encounter Diagnosis: Problem not documented On: 10-Oct-2018 9:30 Appointment; MARIANNE KAUR M.D. Encounter Diagnosis: Problem not documented On: 06-Nov-2018 9:30 Appointment; JEFFREY SWEENEY M.D. Encounter Diagnosis: Problem not documented On: 14-Jan-2019 13:00
[2019-01-28 14:35] VITALS: BP 124/82
--- NOTE | 2019-01-28 15:17 | Operative Report ---
DATE OF PROCEDURE: 01/28/2019 SURGEON: Vishnu Hutchison MD PROCEDURE: Esophagogastroduodenoscopy with biopsies. INDICATIONS FOR EGD: Upper abdominal pain, heartburn, indigestion. MEDICATIONS: The patient was done under MAC, please see anesthesiologist's note. PROCEDURE IN DETAIL: With the patient in left lateral decubitus position, the flexible fiberoptic Olympus gastroscope was introduced into the esophagus under direct visualization without any difficulty. There was some patchy nodularity noted in distal esophagus and biopsies were obtained. Minute tongues of velvety red mucosa were noted to extend proximally from the GE junction. Biopsies were obtained to rule out Meza. The scope was then advanced with ease into the stomach. Mucosa overlying the antrum and the body revealed some diffuse erythema and moderate edema. Biopsies were obtained and sent to stain for H pylori. Pylorus was of normal contour and shape, it was intubated with ease and the scope was advanced all the way to the second portion of the duodenum. The scope was then withdrawn slowly. Mucosa overlying the proximal second portion and duodenal bulb grossly appeared to be within normal limits. Biopsies were obtained to rule out sprue. The scope was then withdrawn back into the stomach and retroflexed and mucosa overlying the fundus and cardia appeared to be within normal limits. The scope was then straightened out, it was subsequently withdrawn. The patient tolerated the procedure well. IMPRESSION: 1. Patchy nodularity of distal esophagus, biopsied. 2. Rule out Meza esophagus. 3. Gastritis, biopsied. Biopsies sent to stain for Helicobacter pylori. 4. Rule out sprue. PLAN: Follow up histology. Initiate Protonix 40 mg one p.o. q.a.m. a.c. and Carafate 1 g p.o. a.c. t.i.d. and at bedtime. Vishnu Hutchison MD [facility] [place] /[id number] cc: Stanislaw Edwards MD
== END | disposition home or self-care (01) ==
LOC: OR 11:11
PROVIDERS: ATTEND Internal Medicine Gastroenterology
DX: K29.50 Unspecified chronic gastritis without bleeding (principal); B96.81 Helicobacter pylori [H. pylori] as the cause of diseases classified elsewhere; K20.9 Esophagitis, unspecified; I10 Essential (primary) hypertension; M54.2 Cervicalgia; F32.9 Major depressive disorder, single episode, unspecified; F41.9 Anxiety disorder, unspecified; F17.290 Nicotine dependence, other tobacco product, uncomplicated; F17.210 Nicotine dependence, cigarettes, uncomplicated; Z01.810 Encounter for preprocedural cardiovascular examination; Z68.31 Body mass index [BMI] 31.0-31.9, adult
CPT/HCPCS: 43239; 93005; J2250; J2704; J2765; J3010